=== PATIENT | female | born 1980 | race Caucasian/White ===

== ENCOUNTER 2017-10-08 14:53 | Emergency (ER) | payer OTHER ==
[~2017-10-08] VITALS: Ht 167.6 cm; Wt 65.8 kg
--- NOTE | 2017-10-08 15:20 | PHYS DOC ---
Past History Past Medical History: No Pertinent History Past Surgical History: Other Additional Past Surgical Histo: breast augmentation, breast reduction, augmentation reversal, Smoking: Non-smoker Alcohol Use: Occasionally Adult General Chief Complaint Chief Complaint: fall from a height HPI HPI She is a pleasant otherwise healthy 37-year-old female who is home on a ladder painting inside her bathroom when she lost her balance falling off of the ladder landing on her neck had an right hip. She had immediate pain in her right hip although she was able to walk this injury occurred 2 hours ago. She denies any loss of conscious, denies any problems with vision changes,'s problems with speech, numbness and tingling in her arms or legs did have some slight tunnel vision at the time of the injury. She denies any chest pain, abdominal pain but is having some neck and head pain described as a dull ache throbbing 7 of 10 worse with range of motion and direct pressure over the neck. She denies any midline tenderness palpation is having a mild frontal headache described as dull and achy moderate as well. Not worse of life and sudden onset she denies any shortness of breath, fevers chills or other symptoms. Patient walked in on her own power to her own vehicle she has 4 children at home and a incapacitated who is bedbound. Review of Systems Review of Systems Constitutional: Denies fever or chills [] Eyes: Denies change in visual acuity, redness, or eye pain [] HENT: Denies nasal congestion or sore throat [] Respiratory: Denies cough or shortness of breath [] Cardiovascular: No additional information not addressed in HPI [] GI: Denies abdominal pain, nausea, vomiting, bloody stools or diarrhea [] : Denies dysuria or hematuria [] Musculoskeletal: Main complaint is neck pain, headache, right hip pain Integument: Denies rash or skin lesions [] Neurologic: Denies headache, focal weakness or sensory changes [] Endocrine: Denies polyuria or polydipsia [] All other systems were reviewed and found to be within normal limits, except as documented in this note. Physical Exam Physical Exam Of the vital signs on the chart within normal limits. Constitutional: Well developed, well nourished, no acute distress, non-toxic appearance. [] HENT: Normocephalic, atraumatic, she does have some tenderness over the posterior scalp with no obvious signs of hematoma no crepitus or step-offs no evidence of skull fracture. Bilateral external ears normal, oropharynx moist, no oral exudates, nose normal. TMs are clear bilaterally with no evidence of hemotympanum [] Eyes: PERRLA, EOMI, conjunctiva normal, no discharge. [] Neck: Normal range of motion, no tenderness, supple, no stridor. [] Cardiovascular:Heart rate regular rhythm, no murmur [] Lungs & Thorax: Bilateral breath sounds clear to auscultation [] Abdomen: Bowel sounds normal, soft, no tenderness, no masses, no pulsatile masses. [] Skin: Warm, dry, no erythema, no rash. [] Back: She has mild tenderness to palpation over the C-spine specifically lateral to C4-5 and 6 there is no midline tenderness to palpation obvious deformity. No soft tissue swelling. Extremities: Ricci range of motion and tenderness to palpation over the superior iliac crest on the right with no obvious deformity negative pelvic rock. Patient has no suprapubic tenderness to palpation no obvious signs of deformity Neurologic: Alert and oriented X 3, normal motor function, normal sensory function, no focal deficits noted. Although patient is in pain she is able ambulate without issue [] Psychologic: Affect normal, judgement normal, mood normal. [] EKG EKG [] Radiology/Procedures Radiology/Procedures [] [place] [address] IMAGING REPORT Signed PATIENT: АЛЕКСАНДР NICOLE ACCOUNT: [id number] : 1980 LOCATION: ER AGE: 37 SEX: F EXAM STATUS: REG ER ORD. PHYSICIAN: SHERRY CORDERO MD REASON: fall PROCEDURE: CT HEAD AND CERVICAL SPINE WO PQRS Compliance Statement: One or more of the following individualized dose reduction techniques were utilized for this examination: 1. Automated exposure control 2. Adjustment of the mA and/or kV according to patient size 3. Use of iterative reconstruction technique CT HEAD AND CERVICAL SPINE WITHOUT CONTRAST History: Fall this AM, Stiffness in neck Comparison: None. Procedure: Axial images are obtained of the head from the skull base through the vertex without IV contrast. Noncontrast helical CT of the cervical spine was performed. Axial, sagittal, and coronal reconstructions were obtained. Findings: The ventricles and sulci are normal for the patient's age. No mass-effect, midline shift, hemorrhage or obvious acute infarction is identified. Basilar cisterns are patent. Bone windows demonstrate no significant calvarial abnormality. The visualized paranasal sinuses are clear. Mastoid air cells are well aerated. There is no evidence of acute fracture or acute malalignment of the cervical spine. The facet joints are intact. The vertebral body height and alignment are maintained. No significant narrowing of the central canal is identified. Visualized soft tissues of the neck demonstrate no significant abnormalities. The visualized lung apices are clear. IMPRESSION: 1. No acute intracranial abnormality. 2. No acute fracture of the cervical spine. Electronically signed by: Skyler Massey MD (10/08/2017 3:57 PM) [id number] DICTATED AND SIGNED BY: SKYLER MASSEY MD DATE: 10/08/17 1552 CC: SHERRY CORDERO MD; LELO JIMENEZ ~ Course & Med Decision Making Course & Med Decision Making Pertinent Labs and Imaging studies reviewed. (See chart for details) []She presents with a fall from standing without loss of consciousness with a normal neuro exam although she has tenderness along the head and neck and her right hip image all 3 areas as she does live alone with 4 children she needs to ensure that there is no evidence of fracture within these areas of the body. She is otherwise comfortable she was given Toradol and oral Tylenol for her discomfort [place] [address] IMAGING REPORT Signed PATIENT: АЛЕКСАНДР NICOLE ACCOUNT: [id number] : 1980 LOCATION: ER AGE: 37 SEX: F EXAM STATUS: REG ER ORD. PHYSICIAN: SHERRY CORDERO MD REASON: fall PROCEDURE: HIP BILATERAL WITH PELVIS HIP BILATERAL WITH PELVIS Clinical Indication: hip pain after falling this am Comparison: None. Findings: No acute pelvic fracture. Sacral arcuate lines are smooth. Sacroiliac joints are symmetric. No diastasis of symphysis pubis. No acute fracture or dislocation of the right or left hip. Nonspecific bowel gas pattern. IMPRESSION: No acute fracture. Electronically signed by: Skyler Massey MD (10/08/2017 3:42 PM) [id number] DICTATED AND SIGNED BY: SKYLER MASSEY MD DATE: 10/08/17 1540 CC: SHERRY CORDERO MD; LELO JIMENEZ ~ Patient's CT scan head and neck were reviewed by me read by radiology patient's hips were reviewed by me and read by me him in serrated no acute fracture noted. Patient will be diagnosed with concussion cervical neck strain from a fall and hip contusion. I'll provide her appropriate pain medications to include Naprosyn and some hydrocodone and close follow-up with her primary care doctor. Impression: Concussion closed head injury, cervical neck strain, hip contusion Disposition: discharge: I've spoken with the patient and/or caregivers. I've explained the patient's condition, diagnosis and treatment plan based on information available to me at this time. I've answered the patient's and/or caregivers questions and addressed any concerns. The patient and/or caregivers have a good understanding the patient's diagnosis, condition and treatment plan as can be expected at this point. Vital signs have been stabilized. The patient's condition is stable for discharge from the emergency department. The patient will pursue further outpatient evaluation with her primary care provider or other designated consulting physician as outlined in the discharge instructions. Patient and/or caregivers are agreeable to this plan of care and follow-up instructions have been explained in detail. The patient and/or caregivers have received these instructions in written format and expressed understanding of these discharge instructions. The patient and her caregivers are aware that if any significant change in condition or worsening of symptoms should prompt him to immediately return to this of the closest emergency department. If an emergent department is not readily available I would encourage him to call 911. Otto Disclaimer Dragon Disclaimer This electronic medical record was generated, in whole or in part, using a voice recognition dictation system. Departure Departure: Impression: Primary Impression: Sprain of cervical neck Additional Impressions: Closed head injury Concussion Contusion, hip Disposition: HOME, SELF-CARE Condition: IMPROVED Referrals: LELO JIMENEZ (PCP) Patient Instructions: Cervical Sprain, Head Injury, Adult, Hip Injury, Hip Pointer (Iliac Crest Contusion)-[facility] Additional Instructions: discharge: I've spoken with the patient and/or caregivers. I've explained the patient's condition, diagnosis and treatment plan based on information available to me at this time. I've answered the patient's and/or caregivers questions and addressed any concerns. The patient and/or caregivers have a good understanding the patient's diagnosis, condition and treatment plan as can be expected at this point. Vital signs have been stabilized. The patient's condition is stable for discharge from the emergency department. The patient will pursue further outpatient evaluation with her primary care provider or other designated consulting physician as outlined in the discharge instructions. Patient and/or caregivers are agreeable to this plan of care and follow-up instructions have been explained in detail. The patient and/or caregivers have received these instructions in written format and expressed understanding of these discharge instructions. The patient and her caregivers are aware that if any significant change in condition or worsening of symptoms should prompt him to immediately return to this of the closest emergency department. If an emergent department is not readily available I would encourage him to call 911. Scripts Naproxen Sodium (NAPROXEN SODIUM) 275 Mg Tablet 275 MG PO BID for 7 Days, #14 TAB Prov: SHERRY CORDERO MD 10/08/17 Methocarbamol (ROBAXIN-750) 750 Mg Tablet 1 TAB PO BID, #20 TAB Prov: SHERRY CORDERO MD 10/08/17 Hydrocodone Bit/Acetaminophen (HYDROCODONE-APAP 5-325 ) 1 Each Tablet 1 TAB PO PRN Q6HRS Y for PAIN for 5 Days, #14 TAB 0 Refills Prov: SHERRY CORDERO MD 10/08/17 Problem Qualifiers SHERRY CORDERO MD Oct 08, 2017 15:20
[2017-10-08] MEDS ORDERED: ACETAMINOPHEN 650 MG/20.3 ML SOLUTION. PO ONE (15:30)
[2017-10-08] MEDS ORDERED: KETOROLAC 60 MG/2 ML VIAL. IM ONE (15:30)
[2017-10-08] MEDS ORDERED: ACETAMINOPHEN 325 MG TABLET PO ONE ×2 (15:43→16:00)
--- NOTE | 2017-10-08 15:45 | RAD ---
HIP BILATERAL WITH PELVIS Clinical Indication: hip pain after falling this am Comparison: None. Findings: No acute pelvic fracture. Sacral arcuate lines are smooth. Sacroiliac joints are symmetric. No diastasis of symphysis pubis. No acute fracture or dislocation of the right or left hip. Nonspecific bowel gas pattern. IMPRESSION: No acute fracture. Electronically signed by: Skyler Massey MD (10/08/2017 3:42 PM) [id number]
--- NOTE | 2017-10-08 16:00 | RAD ---
PQRS Compliance Statement: One or more of the following individualized dose reduction techniques were utilized for this examination: 1. Automated exposure control 2. Adjustment of the mA and/or kV according to patient size 3. Use of iterative reconstruction technique CT HEAD AND CERVICAL SPINE WITHOUT CONTRAST History: Fall this AM, Stiffness in neck Comparison: None. Procedure: Axial images are obtained of the head from the skull base through the vertex without IV contrast. Noncontrast helical CT of the cervical spine was performed. Axial, sagittal, and coronal reconstructions were obtained. Findings: The ventricles and sulci are normal for the patient's age. No mass-effect, midline shift, hemorrhage or obvious acute infarction is identified. Basilar cisterns are patent. Bone windows demonstrate no significant calvarial abnormality. The visualized paranasal sinuses are clear. Mastoid air cells are well aerated. There is no evidence of acute fracture or acute malalignment of the cervical spine. The facet joints are intact. The vertebral body height and alignment are maintained. No significant narrowing of the central canal is identified. Visualized soft tissues of the neck demonstrate no significant abnormalities. The visualized lung apices are clear. IMPRESSION: 1. No acute intracranial abnormality. 2. No acute fracture of the cervical spine. Electronically signed by: Skyler Massey MD (10/08/2017 3:57 PM) [id number]
[2017-10-08] MEDS ORDERED: NAPR275T59 PO (16:14)
[2017-10-08] MEDS ORDERED: HYDR-2758 PO (16:14)
[2017-10-08] MEDS ORDERED: METH-38 PO (16:14)
[2017-10-08 16:30] VITALS: BP 114/71
== END 2017-10-08 16:30 | disposition home or self-care (01) ==
LOC: ER 14:53
DX: S06.0X0A Concussion without loss of consciousness, initial encounter (principal); S13.4XXA Sprain of ligaments of cervical spine, initial encounter; S70.01XA Contusion of right hip, initial encounter; W11.XXXA Fall on and from ladder, initial encounter; Y93.89 Activity, other specified; Y99.8 Other external cause status; Y92.091 Bathroom in other non-institutional residence as the place of occurrence of the external cause
CPT/HCPCS: 70450; 72125; 73521; 96372; 99284; J1885

== ENCOUNTER 2018-11-09 17:53 | Emergency (ER) | payer OTHER ==
[~2018-11-09] VITALS: Ht 158.8 cm; Wt 58.5 kg
[~2018-11-09 17:53] MED LIST: HYDR-2155 PO; METH-38 PO; NAPR275T59 PO
[2018-11-09 17:56] VITALS: BP 118/88
--- NOTE | 2018-11-09 18:15 | ED.ADGEN ---
Past History Past Medical History: No Pertinent History Past Surgical History: Other Additional Past Surgical Histo: breast augmentation, breast reduction, augmentation reversal, Smoking: Non-smoker Alcohol Use: Occasionally Drug Use: None Adult General Chief Complaint Chief Complaint " . I have bad ear aches.. I ve had them all my life.. but it has been a long time before I had one..." HPI HPI Patient is a 38 year old female who presents with complaints of otitis. Patient has had frequent episodes of otitis LIFE. However is been years since her last episode. Patient states her right years more painful. No history immunosuppression. No history of travel. No specific history,. Patient normally healthy. Normally follows with [facility]. Review of Systems Review of Systems Constitutional: Denies fever or chills [] Eyes: Denies change in visual acuity, redness, or eye pain [] HENT: Denies nasal congestion or sore throat []complains of ear pain. Respiratory: Denies cough or shortness of breath [] Cardiovascular: No additional information not addressed in HPI [] GI: Denies abdominal pain, nausea, vomiting, bloody stools or diarrhea [] : Denies dysuria or hematuria [] Musculoskeletal: Denies back pain or joint pain [] Integument: Denies rash or skin lesions [] Neurologic: Denies headache, focal weakness or sensory changes [] Endocrine: Denies polyuria or polydipsia [] All other systems were reviewed and found to be within normal limits, except as documented in this note. Family History Family History Noncontributory Current Medications Current Medications Current Medications Medications (Trade) Dose Ordered Sig/Bull Start Time Stop Time Status Last Admin Dose Admin Cephalexin HCl (Keflex) 500 mg 1X ONCE 11/09/18 18:30 11/09/18 18:31 DC 11/09/18 18:33 500 MG Neomycin/ Polymyxin/ Hydrocortisone (Cortisporin Otic) 12 drop 1X ONCE 11/09/18 18:30 11/09/18 18:31 DC 11/09/18 18:34 12 DROP Allergies Allergies Allergies Coded Allergies Type Severity Reaction Last Updated Verified No Known Drug Allergies 10/08/17 No Physical Exam Physical Exam Constitutional: Well developed, well nourished, [id number] distress, non- toxic appearance. [] HENT: Normocephalic, atraumatic, bilateral external ears normal, fluid behind bilateral TMs. Right is injected ,oropharynx moist, no oral exudates, nose nona l. [] Eyes: PERRLA, EOMI, conjunctiva normal, no discharge. [] Neck: Normal range of motion, no tenderness, supple, no stridor. [] Cardiovascular:Heart rate regular rhythm, no murmur [] Lungs & Thorax: Bilateral breath sounds clear to auscultation [] Abdomen: Bowel sounds normal, soft, no tenderness, no masses, no pulsatile masses. [] Skin: Warm, dry, no erythema, no rash. [] Back: No tenderness, no CVA tenderness. [] Extremities: No tenderness, no cyanosis, no clubbing, ROM intact, no edema. [] Neurologic: Alert and oriented X 3, normal motor function, normal sensory function, no focal deficits noted. [] Psychologic: Affect anxious, judgement normal, mood normal. [] Current Patient Data Vital Signs Vital Signs Date Time Temp Pulse Resp B/P (MAP) Pulse Ox O2 Delivery O2 Flow Rate FiO2 11/09/18 18:42 20 Room Air 11/09/18 17:56 98.3 66 98 EKG EKG [] Radiology/Procedures Radiology/Procedures [] Course & Med Decision Making Course & Med Decision Making Pertinent Labs and Imaging studies reviewed. (See chart for details) Use Cortisporin ear drops 2 drops 4 times a day to both ears. Take Keflex 500 mg 3 times a day. Take Tylenol and ibuprofen for pain. Benadryl 25-50 mg 4 times a day may be helpful. For marked discomfort may take Vicoprofen up 4 times a day. Follow-up primary care. Return if any concerns. [] Final Impression Final Impression 1. Otitis[] bilateral Dragon Disclaimer Dragon Disclaimer This electronic medical record was generated, in whole or in part, using a voice recognition dictation system. Discharge Summary Visit Information Final Diagnosis Problems Medical Problems: (1) Otitis Status: Acute Brief Hospital Course Allergies Allergies Coded Allergies Type Severity Reaction Last Updated Verified No Known Drug Allergies 10/08/17 No Vital Signs Vital Signs Date Time Temp Pulse Resp B/P (MAP) Pulse Ox O2 Delivery O2 Flow Rate FiO2 11/09/18 18:42 20 Room Air 11/09/18 17:56 98.3 66 98 Brief Hospital Course Ms. Bermudez is a 38 old female who presented with history otitis. Discharge Information Condition at Discharge: Stable Disposition/Orders: D/C to Home Dischare Medications Current Medications Neomycin/ Polymyxin/ Hydrocortisone (Cortisporin Otic) 12 drop 1X ONCE AU Last administered on 11/09/18at 18:34; Admin Dose 12 DROP; Start 11/09/18 at 18:30; Stop 11/09/18 at 18:31; Status DC Cephalexin HCl (Keflex) 500 mg 1X ONCE PO Last administered on 11/09/18at 18:33; Admin Dose 500 MG; Start 11/09/18 at 18:30; Stop 11/09/18 at 18:31; Status DC Active Scripts Active Keflex (Cephalexin) 500 Mg Capsule 500 Mg PO TID Hydrocodone-Ibuprofen 7.5-200 (Hydrocodone/Ibuprofen) 1 Each Tablet 1 Tab PO PRN Q6HRS PRN 30 Days Naproxen Sodium 275 Mg Tablet 275 Mg PO BID 7 Days Robaxin-750 (Methocarbamol) 750 Mg Tablet 1 Tab PO BID Hydrocodone-Apap 5-325 (Hydrocodone Bit/Acetaminophen) 1 Each Tablet 1 Tab PO PRN Q6HRS PRN 5 Days Dragon Disclaimer This chart was dictated in whole or in part using Voice Recognition software in a busy, high-work load, and often noisy Emergency Department environment. It may contain unintended and wholly unrecognized errors or omissions. MANAS LOAIZA MD November 09, 2018 18:15
[2018-11-09] MEDS ORDERED: CEPH-264 PO (18:19)
[2018-11-09] MEDS ORDERED: HYDR-1179 PO (18:19)
[2018-11-09] MEDS ORDERED: NEOMYCIN/POLYMYXIN/HC OTIC SUSPENSION 10ML BOTTLE. AU ONE (18:30)
[2018-11-09] MEDS ORDERED: CEPHALEXIN 250 MG CAPSULE PO ONE (18:30)
== END 2018-11-09 18:42 | disposition home or self-care (01) ==
LOC: ER 17:53
DX: H66.93 Otitis media, unspecified, bilateral (principal)
CPT/HCPCS: 99283

== ENCOUNTER 2019-02-01 22:08 | Emergency (ER) | payer OTHER ==
[~2019-02-01] VITALS: Ht 311.1 cm; Wt 59.5 kg
[~2019-02-01 22:08] MED LIST changes: +CEPH-264 PO; +HYDR-1179 PO
--- NOTE | 2019-02-01 22:14 | ED.ADGEN ---
Past History Past Medical History: No Pertinent History Past Surgical History: Other Additional Past Surgical Histo: breast augmentation, breast reduction, augmentation reversal, Smoking: Non-smoker Alcohol Use: Occasionally Drug Use: None Adult General Chief Complaint Chief Complaint ".. I got this blister in top of my mouth...".. I noticed just after eating some cheez-its. and drinking some wine.. I dont want to in my sleep... my kids will have no one to take care of them... 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 HPI HPI Patient is a 38 year old female who presents with above hx and complaints of what appears to be a small less than 1 cm blood blister or hematoma to the top hard palate of her mouth. Became presents after eating cheese crackers and dr inking wine. No history of coagulopathy. No history of health issues. No trismus. No obvious dental decay. Patient does appear to be very anxious. No history of oral sex. Review of Systems Review of Systems Constitutional: Denies fever or chills [] Eyes: Denies change in visual acuity, redness, or eye pain [] HENT: Denies nasal congestion or sore throat []complaints of oral lesion Respiratory: Denies cough or shortness of breath [] Cardiovascular: No additional information not addressed in HPI [] GI: Denies abdominal pain, nausea, vomiting, bloody stools or diarrhea [] : Denies dysuria or hematuria [] Musculoskeletal: Denies back pain or joint pain [] Integument: Denies rash or skin lesions [] Neurologic: Denies headache, focal weakness or sensory changes [] Endocrine: Denies polyuria or polydipsia [] All other systems were reviewed and found to be within normal limits, except as documented in this note. Family History Family History Noncontributory Current Medications Current Medications See nursing for home meds Allergies Allergies Allergies Coded Allergies Type Severity Reaction Last Updated Verified No Known Drug Allergies 10/08/17 No Physical Exam Physical Exam Constitutional: Well developed, well nourished, in acute emotional distress, non-toxic appearance. [] HENT: Normocephalic,lesion on hard palate, bilateral external ears normal, oropharynx moist, no oral exudates, nose normal. [] Eyes: PERRLA, EOMI, conjunctiva normal, no discharge. [] Neck: Normal range of motion, no tenderness, supple, no stridor. [] Cardiovascular:Heart rate regular rhythm, no murmur [] Lungs & Thorax: Bilateral breath sounds equal at apex auscultation [] Abdomen: Bowel sounds normal, soft, no tenderness, no masses, no pulsatile masses. [] Skin: Warm, dry, no erythema, no rash. [] No obvious petechiae or excessive bruising Back: No tenderness, no CVA tenderness. [] Extremities: No tenderness, no cyanosis, no clubbing, ROM intact, no edema. [] Neurologic: Alert and oriented X 3, normal motor function, normal sensory function, no focal deficits noted. [] Psychologic: Affect anxious, judgement normal, mood normal. [] EKG EKG [] Radiology/Procedures Radiology/Procedures [] Course & Med Decision Making Course & Med Decision Making Pertinent Labs and Imaging studies reviewed. (See chart for details) Would maintain a soft diet. Would have lesion rechecked by her dentist within the week. Avoid NSAIDs. May have Tylenol for pain. Return if any concerns. [] Final Impression Final Impression 1. Traumatic 1 cm hematoma or blood blister to upper hard palate of mouth Dragon Disclaimer Dragon Disclaimer This electronic medical record was generated, in whole or in part, using a voice recognition dictation system. Discharge Summary Visit Information Final Diagnosis Problems Medical Problems: (1) Mouth bleeding Status: Acute Brief Hospital Course Allergies Allergies Coded Allergies Type Severity Reaction Last Updated Verified No Known Drug Allergies 10/08/17 No Brief Hospital Course Ms. Bermudez is a 38 old female who presented with lesion to the hard palate Discharge Information Condition at Discharge: Stable Disposition/Orders: D/C to Home Dischare Medications Active Scripts Active Keflex (Cephalexin) 500 Mg Capsule 500 Mg PO TID Hydrocodone-Ibuprofen 7.5-200 (Hydrocodone/Ibuprofen) 1 Each Tablet 1 Tab PO PRN Q6HRS PRN 30 Days Naproxen Sodium 275 Mg Tablet 275 Mg PO BID 7 Days Robaxin-750 (Methocarbamol) 750 Mg Tablet 1 Tab PO BID Hydrocodone-Apap 5-325 (Hydrocodone Bit/Acetaminophen) 1 Each Tablet 1 Tab PO PRN Q6HRS PRN 5 Days Dragon Disclaimer This chart was dictated in whole or in part using Voice Recognition software in a busy, high-work load, and often noisy Emergency Department environment. It may contain unintended and wholly unrecognized errors or omissions. MANAS LOAIZA MD Feb 01, 2019 22:14
[2019-02-01 23:05] VITALS: BP 114/82
== END 2019-02-01 23:05 | disposition home or self-care (01) ==
LOC: ER 22:08
DX: S00.532A Contusion of oral cavity, initial encounter (principal); K13.79 Other lesions of oral mucosa; X58.XXXA Exposure to other specified factors, initial encounter; Y93.89 Activity, other specified; Y92.89 Other specified places as the place of occurrence of the external cause; Y99.8 Other external cause status
CPT/HCPCS: 99281

== ENCOUNTER 2019-05-06 17:18 | Emergency (ER) | payer OTHER ==
[~2019-05-06] VITALS: Ht 157.5 cm; Wt 62.0 kg
[2019-05-06] MEDS ORDERED: ASPIRIN 81 MG TAB.CHEW PO ONE (17:30)
[2019-05-06] MEDS ORDERED: ONDANSETRON PF 4 MG/2 ML VIAL. IVP ONE (18:00)
--- NOTE | 2019-05-06 18:04 | PHYS DOC ---
Past History Past Medical History: Anxiety (JILLIAN MONZON DO) Past Surgical History: Other Additional Past Surgical Histo: breast augmentation, breast reduction, augmen tation reversal, jaw surgery (JILLIAN MONZON DO) Smoking: Non-smoker Alcohol Use: Occasionally Drug Use: None (JILLIAN MONZON DO) Adult General Chief Complaint Chief Complaint: CHEST PAIN [facility] HPI 38-year-old female presents with chest pain. The patient was about to get in her car to go to dinner when she had sudden onset of severe chest pain. At its worst it was a 9 out of 10. She was diaphoretic and felt short of breath. She describes the pain as a burning and a heavy pressure. She has not had symptoms like this before. She denies history of reflux. The pain lasted until she arrived in the emergency room. It is now improved to a 2 out of 10. She still has the burning feeling, but no pressure or diaphoresis. The patient was feeling well prior to this. No cough or other upper respiratory symptoms. She still has some mild nausea. No fever or chills. No vomiting. (JILLIAN MONZON DO) Review of Systems Review of Systems Constitutional: Denies fever or chills [] Eyes: Denies change in visual acuity, redness, or eye pain [] HENT: Denies nasal congestion or sore throat [] Respiratory: shortness of breath [] Cardiovascular: No additional information not addressed in HPI [] GI: Denies abdominal pain, nausea, vomiting, bloody stools or diarrhea [] : Denies dysuria or hematuria [] Musculoskeletal: Denies back pain or joint pain [] Integument: Denies rash or skin lesions. Diaphoresis [] Neurologic: Denies headache, focal weakness or sensory changes [] Endocrine: Denies polyuria or polydipsia [] All other systems were reviewed and found to be within normal limits, except as documented in this note. (JILLIAN MONZON DO) Current Medications Current Medications Current Medications Medications (Trade) Dose Ordered Sig/Bull Start Time Stop Time Status Last Admin Dose Admin Aspirin (Children'S Aspirin) 324 mg 1X ONCE 05/06/19 17:30 05/06/19 17:31 DC 05/06/19 17:38 324 MG (JILLIAN MONZON DO) Allergies Allergies Allergies Coded Allergies Type Severity Reaction Last Updated Verified No Known Drug Allergies 05/06/19 No (JILLIAN MONZON DO) Physical Exam Physical Exam Constitutional: Well developed, well nourished, no acute distress, non-toxic appearance. [] HENT: Normocephalic, atraumatic, bilateral external ears normal, oropharynx moist, no oral exudates, nose normal. [] Eyes: PERRLA, EOMI, conjunctiva normal, no discharge. [] Neck: Normal range of motion, no tenderness, supple, no stridor. [] Cardiovascular:Heart rate regular rhythm, no murmur [] Lungs & Thorax: Bilateral breath sounds clear to auscultation [] Abdomen: Bowel sounds normal, soft, no tenderness, no masses, no pulsatile masses. [] Skin: Warm, dry, no erythema, no rash. [] Back: No tenderness, no CVA tenderness. [] Extremities: No tenderness, no cyanosis, no clubbing, ROM intact, no edema. [] Neurologic: Alert and oriented X 3, normal motor function, normal sensory function, no focal deficits noted. [] Psychologic: Affect normal, judgement normal, mood normal. [] (JILLIAN MONZON DO) Physical Exam Constitutional: Well developed, well nourished, no acute distress, non-toxic appearance HENT: Normocephalic, atraumatic, oropharynx moist Eyes: Conjunctiva normal, no discharge Neck: Normal range of motion, no tenderness, supple Cardiovascular: Heart rate normal, regular rhythm Lungs & Thorax: Bilateral breath sounds clear to auscultation, no wheezing Skin: Warm, dry, no erythema, no rash Extremities: No tenderness, ROM intact, no edema Neurologic: Alert and oriented X 3, no focal deficits noted Psychologic: Affect normal, judgement normal (SHAD SALAZAR DO) Current Patient Data Vital Signs Vital Signs Date Time Temp Pulse Resp B/P (MAP) Pulse Ox O2 Delivery O2 Flow Rate FiO2 05/06/19 17:26 98.4 72 18 100 Room Air (JILLIAN MONZON DO) EKG EKG [] (JILLIAN MONZON DO) EKG @1727 NSR at 76bpm, NO ST elevation (SHAD SALAZAR DO) Radiology/Procedures Radiology/Procedures [] (JILLIAN MONZON DO) Radiology/Procedures PROCEDURE: PORTABLE CHEST 1V Single view chest dated 05/06/2019: No comparison available. Clinical Indication: Chest pain. Findings: Single upright portable exam of the chest was performed. Heart size and mediastinal contours are within normal limits given technique. The lungs are clear without evidence of focal consolidation. Vascular interstitium is within normal limits. Impression:: No acute radiographic abnormality. Electronically signed by: Shad Ramos MD (05/06/2019 6:29 PM) [facility] (SHAD SALAZAR DO) Course & Med Decision Making Course & Med Decision Making Pertinent Labs and Imaging studies reviewed. (See chart for details) The patient's EKG is unremarkable. She was given 324 aspirin on arrival. I have also given her 4 mg of Zofran IV. Her workup is pending. I'm signing the patient out to Dr. Salazar for further management and final disposition. [] (JILLIAN MONZON DO) Course & Med Decision Making 1800- Sign out received from Dr. Monzon for patient with low cardiac risk factors. EKG reviewed and within normal limits. Chest x-ray stable. Labs pending at time of signout. Troponin within normal limits. Heart score 0. Patient stable for discharge with outpatient follow-up with PCP. Discussed findings and plan with patient and family, who acknowledge understanding and agreement. (SHAD SALAZAR DO) Dragon Disclaimer Dragon Disclaimer This electronic medical record was generated, in whole or in part, using a voice recognition dictation system. (JILLIAN MONZON DO) Departure Departure: Impression: Primary Impression: Chest pain Disposition: HOME, SELF-CARE Condition: STABLE Referrals: LELO IJMENEZ (PCP) NATALIE COOK MD, SCOTT S MD Patient Instructions: Chest Pain (Nonspecific), [id number] HEART Score for Chest Pain PTs The HEART Score for CP Pts HEART Score for Chest Pain: HEART Score for Chest Pain Response (Comments) Value History Slighlty/Non-Suspicious 0 ECG Normal 0 Age < 45 0 Risk Factors No Risk Factors 0 Troponin < Normal Limit 0 Total 0 Risk Factors: Risk Factors: DM, Current or recent (<one month) smoker, HTN, HLP, family history of CAD, obesity. Risk Scores: Score 0 - 3: 2.5% MACE over next 6 weeks - Discharge Home Score 4 - 6: 20.3% MACE over next 6 weeks - Admit for Clinical Observation Score 7 - 10: 72.7% MACE over next 6 weeks - Early Invasive Strategies (SHAD SALAZAR DO) Problem Qualifiers Primary Impression: Chest pain Chest pain type: unspecified Qualified Codes: R07.9 - Chest pain, unspecified JILLIAN MONZON DO May 06, 2019 18:03 SHAD SALAZAR DO May 06, 2019 18:32
[2019-05-06 18:11] LABS: BASO % 1 % (0-3); EOS # 0.1 x10^3/uL (0.0-0.7); EOS % 2 % (0-3); HEMATOCRIT 41.6 % (36.0-47.0); HEMOGLOBIN 14.2 g/dL (12.0-15.5); LYMPH # 2.2 x10^3/uL (1.0-4.8); LYMPH % 30 % (24-48); MEAN CORPUSCULAR HEMOGLOBIN 34 pg (25-35); MEAN CORPUSCULAR HGB CONC 34 g/dL (31-37); MEAN CORPUSCULAR VOLUME 98 fL (79-100); MONO # 0.6 x10^3/uL (0.0-1.1); MONO % 8 % (0-9); NEUT # 4.3 x10^3uL (1.8-7.7); NEUT % 60 % (31-73); PLATELET COUNT 175 x10^3/uL (140-400); RED BLOOD COUNT 4.23 x10^6/uL (3.50-5.40); RED CELL DISTRIBUTION WIDTH 12.9 % (11.5-14.5); WHITE BLOOD COUNT 7.2 x10^3/uL (4.0-11.0)
[2019-05-06 18:26] LABS: ALBUMIN/GLOBULIN RATIO 1.1 (1.0-1.7); CREATININE 1.1 mg/dL (0.6-1.0); POTASSIUM 3.8 mmol/L (3.5-5.1); TOTAL BILIRUBIN 0.4 mg/dL (0.2-1.0); TOTAL PROTEIN 7.5 g/dL (6.4-8.2)
--- NOTE | 2019-05-06 18:32 | RAD ---
Single view chest dated 05/06/2019: No comparison available. Clinical Indication: Chest pain. Findings: Single upright portable exam of the chest was performed. Heart size and mediastinal contours are within normal limits given technique. The lungs are clear without evidence of focal consolidation. Vascular interstitium is within normal limits. Impression:: No acute radiographic abnormality. Electronically signed by: Shad Ramos MD (05/06/2019 6:29 PM) [facility]
[2019-05-06 18:39] VITALS: BP 138/85
--- NOTE | 2019-05-07 05:35 | EKG ---
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
== END 2019-05-06 19:16 | disposition home or self-care (01) ==
LOC: ER 17:18
DX: R07.89 Other chest pain (principal); F41.9 Anxiety disorder, unspecified
CPT/HCPCS: 36415; 71045; 80053; 83880; 84484; 85025; 93005; 96374; 96375; 99285; J2060; J2405

== ENCOUNTER 2020-04-09 17:58 | Emergency (ER) | payer OTHER ==
[~2020-04-09] VITALS: Ht 157.5 cm; Wt 59.0 kg
--- NOTE | 2020-04-09 19:01 | RAD ---
Exam: CT head and cervical spine without contrast INDICATION: Fall TECHNIQUE: Sequential axial images through the head and cervical spine were obtained without the administration of IV contrast. Comparisons: 10/08/2017 FINDINGS: Head: No focal parenchymal lesion or hemorrhage is identified. There is no midline shift or sulcal effacement. No acute vascular territory infarction is identified. Santos-white distinction is preserved. The ventricular system is within normal limits without compression hydrocephalus. The basal cisterns are well maintained. The visualized portions of the paranasal sinuses and mastoid air cells are well-pneumatized. No acute fractures. Cervical spine: There is straightening of the cervical spine which may positional. Vertebral body heights are well-maintained. Fracture to the cervical spine is not identified. Mild multilevel spondylotic change in cervical spine with degenerative disc disease greatest at C5-C6 and C6-C7. Visualized soft tissues are unremarkable. IMPRESSION: 1. No acute intracranial abnormality. 2. Negative CT C-spine for acute traumatic injury. Exposure: One or more of the following in the visualized dose reduction techniques were utilized for this examination: 1. Automated exposure control 2. Adjustment of the MA and/or KV according to patient size Use of iterative of reconstructive technique Electronically signed by: Katty Trevino MD (04/09/2020 6:58 PM) [facility]
--- NOTE | 2020-04-09 19:35 | PHYS DOC ---
Past History Past Medical History: Anxiety Past Surgical History: Other Additional Past Surgical Histo: breast augmentation, breast reduction, augmentation reversal, jaw surgery Smoking: Non-smoker Alcohol Use: Occasionally Drug Use: None General Adult EDM: Chief Complaint: MECHANICAL FALL HPI: HPI: ".. I was on a ladder.. then stepped over .. on to a dresser.. then I fell.." Patient is a 39 year old female who presents with above hx and complaints of head injury after fall off step ladder while attempting to step on a dresser. Patient states she did not lose consciousness but was stunned. Patient does have history of previous head injury. Patient denies any history immunosuppression. No history of recent travel. No history of specific ill contacts. Pt. follows with [facility] for care. Pt. denies other significant injury at this time. Review of Systems: Review of Systems: Constitutional: Denies fever or chills Eyes: Denies change in visual acuity HENT: Complains of head injury Respiratory: Denies cough or shortness of breath Cardiovascular: Denies chest pain or edema GI: Denies abdominal pain, nausea, vomiting, bloody stools or diarrhea : Denies dysuria Musculoskeletal: Denies back pain or joint pain Integument: Denies rash Neurologic: Denies headache, focal weakness or sensory changes Endocrine: Denies polyuria or polydipsia Lymphatic: Denies swollen glands Psychiatric: Denies depression or anxiety Heart Score: Risk Factors: Risk Factors: DM, Current or recent (<one month) smoker, HTN, HLP, family history of CAD, obesity. Risk Scores: Score 0 - 3: 2.5% MACE over next 6 weeks - Discharge Home Score 4 - 6: 20.3% MACE over next 6 weeks - Admit for Clinical Observation Score 7 - 10: 72.7% MACE over next 6 weeks - Early Invasive Strategies Family History: Family History: Noncontributory Current Medications: Current Meds: See nursing for home meds Allergies: Allergies: Allergies Coded Allergies Type Severity Reaction Last Updated Verified No Known Drug Allergies 05/06/19 No Physical Exam: PE: Constitutional: Moderate acute distress, non-toxic appearance. [] HENT: Normocephalic, contusion, bilateral external ears normal, oropharynx moist, no oral exudates, nose normal. Old surgery scars Eyes: PERRLA, EOMI, conjunctiva normal, no discharge. [] Neck: Normal range of motion, no tenderness, supple, no stridor. [] Cardiovascular:Heart rate regular rhythm, no murmur [] Lungs & Thorax: Bilateral breath sounds equal at apex with few scattered wheezes on auscultation . Surgery scar Abdomen: Bowel sounds normal, soft, no tenderness, no masses, no pulsatile masses. [] Surgery scar Skin: Warm, dry, no erythema, no rash. [] Back: No tenderness, no CVA tenderness. [] Extremities: No tenderness, no cyanosis, no clubbing, ROM intact, no edema. [] Neurologic: Alert and oriented X 3, normal motor function, normal sensory function, no focal deficits noted. [] DTRs +2 patella and brachial. Watch Inspector Final Movement eq ual. No drift. Amatory without problems. Psychologic: Affect anxious, judgement normal, mood normal. [] EKG: EKG: [] Radiology/Procedures: Radiology/Procedures: [place] [address] IMAGING REPORT Signed PATIENT: АЛЕКСАНДР NICOLE ACCOUNT: [id number] : 1980 LOCATION: ER AGE: 39 SEX: F EXAM STATUS: REG ER ORD. PHYSICIAN: MANAS LOAIZA MD REASON: FALL PROCEDURE: CT HEAD AND CERVICAL SPINE WO Exam: CT head and cervical spine without contrast INDICATION: Fall TECHNIQUE: Sequential axial images through the head and cervical spine were obtained without the administration of IV contrast. Comparisons: 10/08/2017 FINDINGS: Head: No focal parenchymal lesion or hemorrhage is identified. There is no midline shift or sulcal effacement. No acute vascular territory infarction is identified. Santos-white distinction is preserved. The ventricular system is within normal limits without compression hydrocephalus. The basal cisterns are well maintained. The visualized portions of the paranasal sinuses and mastoid air cells are well-pneumatized. No acute fractures. Cervical spine: There is straightening of the cervical spine which may positional. Vertebral body heights are well-maintained. Fracture to the cervical spine is not identified. Mild multilevel spondylotic change in cervical spine with degenerative disc disease greatest at C5-C6 and C6-C7. Visualized soft tissues are unremarkable. IMPRESSION: 1. No acute intracranial abnormality. 2. Negative CT C-spine for acute traumatic injury. Exposure: One or more of the following in the visualized dose reduction techniques were utilized for this examination: 1. Automated exposure control 2. Adjustment of the MA and/or KV according to patient size Use of iterative of reconstructive technique Electronically signed by: Katty Olivo MD (04/09/2020 6:58 PM) [facility] DICTATED AND SIGNED BY: KATTY OLIVO MD DATE: 04/09/201857 CC: [facility]; MANAS LOAIZA MD; LELO JIMENEZ ~ [][place] [id number] IMAGING REPORT Signed PATIENT: АЛЕКСАНДР NICOLE ACCOUNT: [id number] : 1980 LOCATION: ER AGE: 39 SEX: F EXAM STATUS: REG ER ORD. PHYSICIAN: MANAS LOAIZA MD REASON: FALL PROCEDURE: CT HEAD AND CERVICAL SPINE WO Exam: CT head and cervical spine without contrast INDICATION: Fall TECHNIQUE: Sequential axial images through the head and cervical spine were obtained without the administration of IV contrast. Comparisons: 10/08/2017 FINDINGS: Head: No focal parenchymal lesion or hemorrhage is identified. There is no midline shift or sulcal effacement. No acute vascular territory infarction is identified. Santos-white distinction is preserved. The ventricular system is within normal limits without compression hydrocephalus. The basal cisterns are well maintained. The visualized portions of the paranasal sinuses and mastoid air cells are well-pneumatized. No acute fractures. Cervical spine: There is straightening of the cervical spine which may positional. Vertebral body heights are well-maintained. Fracture to the cervical spine is not identified. Mild multilevel spondylotic change in cervical spine with degenerative disc disease greatest at C5-C6 and C6-C7. Visualized soft tissues are unremarkable. IMPRESSION: 1. No acute intracranial abnormality. 2. Negative CT C-spine for acute traumatic injury. Exposure: One or more of the following in the visualized dose reduction techniques were utilized for this examination: 1. Automated exposure control 2. Adjustment of the MA and/or KV according to patient size Use of iterative of reconstructive technique Electronically signed by: Katty Olivo MD (04/09/2020 6:58 PM) [facility] DICTATED AND SIGNED BY: KATTY OLIVO MD DATE: 04/09/20 532 CC: [facility]; MANAS LOAIZA MD; LELO JIMENEZ ~ Course & Med Decision Making: Course & Med Decision Making Pertinent Labs and Imaging studies reviewed. (See chart for details) Patient is ice packs as needed. Patient take Tylenol for pain. Return if any status changes. Follow-up primary care. Not to advance to NSAIDs until after 48 hours. Impression: 1. Fall 2. Head Injury [] Dragon Disclaimer: Dragon Disclaimer: This electronic medical record was generated, in whole or in part, using a voice recognition dictation system. Departure Departure: Disposition: 01 DC HOME SELF CARE/HOMELESS Condition: STABLE Referrals: LELO JIMENEZ (PCP) Scripts Oxycodone Hcl/Acetaminophen (PERCOCET 5-325 MG TABLET ) 1 Each Tablet 1 TAB PO PRN QID PRN for neck injury MDD 4 Tablet(s) for 30 Days, #30 TAB 0 Refills Prov: MANAS LOAIZA MD 04/09/20 MANAS LOAIZA MD Apr 09, 2020 19:35
[2020-04-09 20:40] VITALS: BP 126/94
[2020-04-09] MEDS ORDERED: OXYC1TAB15 PO (20:48)
== END 2020-04-09 20:55 | disposition home or self-care (01) ==
LOC: ER 17:58
DX: S00.83XA Contusion of other part of head, initial encounter (principal); F41.9 Anxiety disorder, unspecified; W11.XXXA Fall on and from ladder, initial encounter; Y93.89 Activity, other specified; Y92.89 Other specified places as the place of occurrence of the external cause; Y99.8 Other external cause status
CPT/HCPCS: 70450; 72125; 99285

== ENCOUNTER → 2020-04-20 | Outpatient (CLI) | payer OTHER ==
[2020-04-09 20:40] VITALS: BP 126/94
[~2020-04-20] MED LIST changes: +OXYC1TAB15 PO
--- NOTE | 2020-04-21 11:04 | RAD ---
DATE: 04/20/2020 EXAM: MAMMO SETH SCREENING BILATERAL HISTORY: Screening. COMPARISON: None. Baseline exam This study was interpreted with the benefit of Computerized Aided Detection (CAD). Breast Density: HETERO The breast parenchyma is heterogenously dense, which could reduce sensitivity of mammography. Breast parenchyma level C. FINDINGS: No mass, suspicious calcification, or architectural distortion in either breast. IMPRESSION: No evidence of malignancy. BI-RADS CATEGORY: 1 NEGATIVE RECOMMENDED FOLLOW-UP: 12M 12 MONTH FOLLOW-UP PQRS compliance statement: Patient information was entered into a reminder system with a target due date 04/21/2021 for the next mammogram. Mammography is a sensitive method for finding small breast cancers, but it does not detect them all and is not a substitute for careful clinical examination. A negative mammogram does not negate a clinically suspicious finding and should not result in delay in biopsying a clinically suspicious abnormality. "Our facility is accredited by the [employer] Mammography Program."
== END ==
LOC: MAMMO 08:42
PROVIDERS: ATTEND Obstetrics & Gynecology
DX: Z12.31 Encounter for screening mammogram for malignant neoplasm of breast (principal)
CPT/HCPCS: 77063; 77067

== ENCOUNTER → 2021-03-29 | Outpatient (CLI) | payer OTHER | LOC: LAB 13:45 | PROVIDERS: ATTEND Nurse Practitioner Women's Health | DX: Z11.3 Encounter for screening for infections with a predominantly sexual mode of transmission (principal) | CPT/HCPCS: 36415; 86592; 86695; 86703; 86803 ==

== ENCOUNTER → 2021-05-20 | Outpatient (CLI) | payer OTHER ==
--- NOTE | 2021-05-20 12:35 | RAD ---
BILATERAL DIGITAL SCREENING 2-D AND 3-D MAMMOGRAM 05/20/2021 INDICATION: Routine screening. COMPARISON: Study of 04/20/2020. Interpretation was made using CAD. FINDINGS: Breast Density: There are scattered areas of fibroglandular density. RIGHT BREAST: No suspicious masses, calcifications or areas of architectural distortion are seen. LEFT BREAST: No suspicious masses, calcifications or areas of architectural distortion are seen. IMPRESSION: 1. No imaging evidence of malignancy. ASSESSMENT: BI-RADS 1. Negative. RECOMMENDATION: Routine annual screening mammogram. The facility will notify the patient of the results via mail. Patient information will be entered int o the mammography reminder system with a target recall date for the next mammogram. A reminder letter will be generated by the facility. Electronically signed by: Jordan Rivera Jr., MD (05/20/2021 12:32 PM) [id number]
== END ==
LOC: MAMMO 10:20
PROVIDERS: ATTEND Obstetrics & Gynecology
DX: Z12.31 Encounter for screening mammogram for malignant neoplasm of breast (principal)
CPT/HCPCS: 77063; 77067

== ENCOUNTER 2021-09-08 21:02 | Emergency (ER) | payer OTHER ==
[~2021-09-08] VITALS: Ht 157.5 cm; Wt 59.0 kg
[2021-09-08 21:02] VITALS: BP 110/82
--- NOTE | 2021-09-08 21:24 | PHYS DOC ---
Past History Past Medical History: Anxiety, UTI Additional Past Medical Histor: ablation for varicose veins in both legs; D & C after miscarriage Past Surgical History: Other Additional Past Surgical Histo: breast augmentation, breast reduction, augmentation reversal, jaw surgery; Smoking: Non-smoker Alcohol Use: Occasionally Drug Use: None Adult General Chief Complaint Chief Complaint: MECHANICAL FALL HPI HPI Patient is a 41-year-old female who presents to the emergency department with a chief complaint of head pain after slipping and falling on the ice, backwards and hitting her head. States that this happened earlier in the day. Denies any loss of consciousness, change in vision, pain or trouble swallowing, chest pain, shortness of breath, abdominal pain, nausea, vomiting. Denies any numbness/weakness/tingling. Denies any trouble sitting, standing or walking. States he is making urine and stool normally for her. States he did not take any medications. Review of Systems Review of Systems Review of systems otherwise unremarkable except noted in HPI Allergies Allergies Allergies Coded Allergies Type Severity Reaction Last Updated Verified No Known Drug Allergies 04/09/20 No Physical Exam Physical Exam Constitutional: Well developed, well nourished, no acute distress, non-toxic appearance. [] HENT: Normocephalic, atraumatic, bilateral external ears normal, oropharynx moist, no oral exudates, nose normal. [] Eyes: conjunctiva normal, no discharge. [] Neck: Normal range of motion, no tenderness, supple, no stridor. [] Cardiovascular:Heart rate regular rhythm, no murmur [] Lungs & Thorax: Bilateral breath sounds clear to auscultation [] Abdomen: soft, no tenderness, no masses, no pulsatile masses. [] Skin: Warm, dry, no erythema, no rash. [] Back: No tenderness, no CVA tenderness. [] Extremities: No tenderness, no cyanosis, no clubbing, ROM intact, no edema. [] Neurologic: Alert and oriented X 3, normal motor function, normal sensory function, able to sit, stand and walk without issue. No focal deficits noted. [] Psychologic: Affect normal, judgement normal, mood normal. [] EKG EKG [] Radiology/Procedures Radiology/Procedures [] Heart Score C/O Chest Pain: No Risk Factors: Risk Factors: DM, Current or recent (<one month) smoker, HTN, HLP, family history of CAD, obesity. Risk Scores: Risk Factors: DM, Current or recent (<one month) smoker, HTN, HLP, family history of CAD, obesity. Course & Med Decision Making Course & Med Decision Making Patient is in a 41-year-old female who presents after slipping on the ice, falling backwards and hitting her head Vital signs nonconcerning. Physical exam noted above. Patient given ice and pain medicines. Imaging with no acute osseous abnormalities. Discussed concussion as a possibility. Gave concussion precautions and education. Discussed symptomatic treatment at home. Advised to follow-up with primary care physician soon as possible. Gave return precautions to the ED. Patient grateful, verbalized understanding and agree with plan of discharge Police in the front lobby looking for this patient, however they did have a warrant and no information was given. [] Dragon Disclaimer Dragon Disclaimer This electronic medical record was generated, in whole or in part, using a voice recognition dictation system. Departure Departure: Impression: Primary Impression: Fall due to ice or snow Additional Impression: Headache Disposition: 01 HOME / SELF CARE / HOMELESS Condition: GOOD Referrals: LELO JIMENEZ (PCP) Patient Instructions: Concussion and Brain Injury, Fall Prevention and Home Safety, General Headache Without Cause Additional Instructions: Thank you for coming into the emergency department tonight and allowing us to take care of you. Please read the attached information carefully go over things we discussed. You can begin a Tylenol, ibuprofen, Benadryl and ice regimen as discussed. Please follow-up as soon as you can with your primary care physician update on your ED visit. Please come back with new or concerning symptoms as discussed. Problem Qualifiers ASTRID AVENDANO MD Sep 08, 2021 21:24
[2021-09-08] MEDS ORDERED: ACETAMINOPHEN 500 MG TABLET PO ONE (21:30)
[2021-09-08] MEDS ORDERED: IBUPROFEN 600 MG TABLET. PO ONE (22:45)
--- NOTE | 2021-09-08 22:53 | RAD ---
CT HEAD AND C-SPINE WO History: Reason: fall / Spl. Instructions: / History: . Pain Comparison: None. Technique: Noncontrast CT imaging was performed of the head and cervical spine. Coronal and sagittal reconstructions were performed. Exposure: One or more of the following individualized dose reduction techniques were utilized for thi s examination: 1. Automated exposure control 2. Adjustment of the mA and/or kV according to patient size 3. Use of iterative reconstruction technique. Findings: Head CT: No intracranial hemorrhage. No mass effect. No hydrocephalus. Left frontal scalp soft tissue swelling and hematoma. Imaged orbits are unremarkable. Imaged paranasal sinuses and mastoid air cells are clear. No acute ca lvarial fracture. Cervical spine CT: Normal vertebral body height and alignment. No fracture. Mild degenerative disc changes most prominent C4-C5 and C5-C6. No significant canal narrowing. There is neuroforaminal narrowing. Soft tissues unremarkable. Impression: Head CT: 1. No acute intracranial abnormality. 2. Left frontal scalp soft tissue swelling and hematoma. Cervical spine CT: 1. No acute fracture or subluxation of the cervical spine. Electronically signed by: Jakub Mario DO (09/08/2021 10:50 PM) [facility]
== END 2021-09-08 23:29 | disposition home or self-care (01) ==
LOC: ER 21:02 → EEVIPCON 21:02 → ER 23:29
DX: R51.9 Headache, unspecified (principal); F41.9 Anxiety disorder, unspecified; Z87.440 Personal history of urinary (tract) infections; W00.0XXA Fall on same level due to ice and snow, initial encounter; Y93.89 Activity, other specified; Y92.89 Other specified places as the place of occurrence of the external cause; Y99.8 Other external cause status
CPT/HCPCS: 70450; 72125; 81025; 99284